=== PATIENT | male | born 1965 | race Two or more races ===

== ENCOUNTER 2024-03-17 10:45 | Inpatient (IN) | payer OTHER ==
[~2024-03-17] VITALS: Ht 180.3 cm; Wt 74.8 kg
[2024-03-17] MEDS ORDERED: IRBESARTAN150 MG PO (14:08)
[2024-03-17] MEDS ORDERED: TRIJARDY XR 121 EACH PO (14:08)
[2024-03-17] MEDS ORDERED: ATORVASTATIN CA10 MG PO (14:08)
[2024-03-24] MEDS ORDERED: IRBESARTAN-HCT1 EACH (08:01)
[2024-03-24] MEDS ORDERED: FAMOTIDINE20 MG (08:02)
[2024-03-24] MEDS ORDERED: HEMOSTATIC MATRIX 1 KIT KIT TOP ONE (10:45)
[2024-03-24] MEDS ORDERED: METRONIDAZOLE/SODIUM CHLORIDE 500 MG/100 ML PIGGYBACK IV SCH ×2 (10:45→17:00)
[2024-03-24] MEDS ORDERED: LIDOCAINE HCL 1%/EPINEPHRINE 20ML VIAL IJ ONE (10:45)
[2024-03-24] MEDS ORDERED: BUPIVACAINE HCL 30 ML VIAL IJ ONE (10:45)
[2024-03-24] MEDS ORDERED: CEFTRIAXONE SODIUM 2,000 MG VIAL IV SCH (10:45)
[2024-03-24] MEDS ORDERED: DIBUCAINE 30 GM TUBE RECTAL ONE (10:45)
[2024-03-24] MEDS ORDERED: POVIDONE-IODINE 118 ML BOTT TOP ONE (10:45)
[2024-03-24] MEDS ORDERED: OxyCODONE HCL 5 MG TABLET (ROXICODONE) PO PRN (11:00)
[2024-03-24] MEDS ORDERED: DEXTROSE 50 % IN WATER 0.5 G/ML VIAL IV PRN (11:00)
[2024-03-24] MEDS ORDERED: ONDANSETRON HCL 2 MG/ML VIAL IV PRN (11:00)
[2024-03-24] MEDS ORDERED: 0.9 % SODIUM CHLORIDE 1,000 ML IV SCH (11:00)
[2024-03-24] MEDS ORDERED: MORPHINE SULFATE 4 MG/ML CARTRIDGE IV PRN (11:00)
[2024-03-24 12:28] LABS: HEMATOCRIT 44.9 % (39.0-48.0); HEMOGLOBIN 15.2 g/dL (13-16.00); MEAN CORPUSCULAR HEMOGLOBIN 30.1 pg (27.00-32.0); MEAN CORPUSCULAR HGB CONC 33.9 g/dl (32.0-36.0); PLATELET COUNT 206 K/uL (150-450); RED BLOOD COUNT 5.05 M/uL (4.00-6.00); RED CELL DISTRIBUTION WIDTH 13.5 % (11.5-14.5)
[2024-03-24 13:04] LABS: ALBUMIN 3.8 gm/dL (3.4-5.0); CALCIUM 8.4 mg/dL (8.5-10.1); CREATININE SERUM 0.97 mg/dL (0.70-1.30); GFR 78.95; MAGNESIUM 1.9 mg/dL (1.8-2.4); PHOSPHOROUS 2.9 mg/dL (2.5-4.9); POTASSIUM 3.89 mEq/L (3.5-5.1)
[2024-03-24] MEDS ORDERED: ACETAMINOPHEN 500 MG GEL..CAP PO SCH (14:00)
[2024-03-24] MEDS ORDERED: POLYETHYLENE GLYCOL 3350 17 GM BLIST.PACK PO SCH (17:00)
[2024-03-24] MEDS ORDERED: HYOSCYAMINE SULFATE 0.125 MG TAB.SUBL SL SCH (17:00)
[2024-03-24] MEDS ORDERED: GABAPENTIN 300 MG CAPSULE PO SCH (17:00)
[2024-03-24] MEDS ORDERED: FAMOTIDINE/PF 20 MG/2 ML VIAL IV PUSH SCH (21:00)
[2024-03-25] MEDS ORDERED: TRAM1TAB98 PO (06:50)
[2024-03-25] MEDS ORDERED: RECTICARE30 GM TOP (06:50)
[2024-03-25 07:49] LABS: HEMATOCRIT 39.1 % (39.0-48.0); HEMOGLOBIN 13.4 g/dL (13-16.00); MEAN CELL VOLUME 89.3 fL (80.0-100.00); MEAN CORPUSCULAR HEMOGLOBIN 30.7 pg (27.00-32.0); MEAN CORPUSCULAR HGB CONC 34.4 g/dl (32.0-36.0); PLATELET COUNT 188 K/uL (150-450); RED BLOOD COUNT 4.38 M/uL (4.00-6.00); RED CELL DISTRIBUTION WIDTH 12.9 % (11.5-14.5)
[2024-03-25 08:10] LABS: ALBUMIN 2.9 gm/dL (3.4-5.0); CALCIUM 7.7 mg/dL (8.5-10.1); CREATININE SERUM 0.94 mg/dL (0.70-1.30); GFR 81.86; MAGNESIUM 1.9 mg/dL (1.8-2.4); PHOSPHOROUS 2.9 mg/dL (2.5-4.9); POTASSIUM 3.49 mEq/L (3.5-5.1)
[2024-03-25] MEDS ORDERED: IRBESARTAN 150 MG TABLET PO SCH (09:00)
[2024-03-25] MEDS ORDERED: ENOXAPARIN SODIUM 40 MG/0.4 ML SYRINGE SUBCUTANEO SCH (17:00)
[2024-03-26] MEDS ORDERED: ENOXAPARIN SODIUM 40 MG/0.4 ML SYRINGE SUBCUTANEO SCH (09:00)
== END 2024-03-25 13:24 | disposition home or self-care (01) | DRG 395 ==
LOC: O/R 03-24 05:35 → SURG 03-24 05:35
PROVIDERS: ADMIT Surgery; ATTEND Surgery
PROC: 3E0T3BZ Introduction of Anesthetic Agent into Peripheral Nerves and Plexi, Percutaneous Approach (ICD-10-PCS; 2024-03-24)
PROC: 0DBP8ZZ Excision of Rectum, Via Natural or Artificial Opening Endoscopic (ICD-10-PCS; principal; 2024-03-24 10:15)
DX: D12.8 Benign neoplasm of rectum (principal); Z20.822 Contact with and (suspected) exposure to COVID-19
CPT/HCPCS: 0184T; 64430